=== PATIENT | female | born 1965 | race Hispanic/Latino ===

== ENCOUNTER 2017-09-15 21:00 | Emergency (ER) | payer OTHER ==
[2017-09-15] MEDS ORDERED: Sodium Chloride 0.9% 1,000 ML IV STA (21:31)
--- NOTE | 2017-09-15 21:33 | ED PDOC ---
HPI:Nausea, Vomiting, Diarrhea Time Seen by Provider: 09/15/17 21:11 Chief Complaint (Nursing): GI Problem Chief Complaint (Provider): vomiting, diarrhea History Per: Patient History/Exam Limitations: no limitations Onset/Duration Of Symptoms: Days (2) Current Symptoms Are (Timing): Still Present Quality Of Discomfort: Cramping Additional Complaint(s): 52 y/o female presents for evaluation of nonbloody diarrhea x 2 days, and vomiting x 6 hours. Associated lower abdominal cramping. Denies fever, cough, congestion, chest pain, shortness of breath, palpitations, urinary symptoms, vaginal bleeding/discharge, recent travel. Patient states her has had diarrhea x 2 days. Past Medical History Reviewed: Historical Data, Nursing Documentation, Vital Signs Vital Signs: Last Vital Signs Temp 99.2 F 09/15/17 21:03 Pulse 90 09/15/17 21:03 Resp 16 09/15/17 21:03 BP 118/71 09/15/17 21:03 Pulse Ox 95 09/15/17 21:03 - Medical History PMH: No Chronic Diseases - Surgical History Other surgeries: breast augmentation - Family History Family History: States: No Known Family Hx - Home Medications Home Medications: Ambulatory Orders Medication Instructions Recorded Dicyclomine [Bentyl] 20 mg PO TID PRN #15 tab 09/16/17 Ondansetron ODT [Zofran ODT] 4 mg PO Q8 PRN #10 odt 09/16/17 - Allergies Allergies/Adverse Reactions: Allergies Allergy/AdvReac Type Severity Reaction Status Date / Time No Known Allergies Allergy Verified 09/15/17 21:02 Review of Systems ROS Statement: Except As Marked, All Systems Reviewed And Found Negative Gastrointestinal: Positive for: Nausea, Vomiting, Abdominal Pain, Diarrhea Physical Exam - Reviewed Nursing Documentation Reviewed: Yes Vital Signs Reviewed: Yes - Physical Exam Appears: Positive for: Well, Non-toxic, No Acute Distress Head Exam: Positive for: ATRAUMATIC, NORMAL INSPECTION, NORMOCEPHALIC Skin: Positive for: Normal Color Eye Exam: Positive for: Normal appearance ENT: Positive for: Normal ENT Inspection Cardiovascular/Chest: Positive for: Regular Rate, Rhythm Respiratory: Positive for: Normal Breath Sounds Gastrointestinal/Abdominal: Positive for: Normal Exam Back: Positive for: Normal Inspection Extremity: Positive for: Normal ROM Neurologic/Psych: Positive for: Alert, Oriented - Laboratory Results Result Diagrams: 09/15/17 22:03 09/15/17 22:03 - ECG O2 Sat by Pulse Oximetry: 95 - Progress ED Course And Treament: labs, urine, IV fluids, ODT zofran, PO bentyl On re-eval, patient states nausea improved but still present; IV reglan ordered 00:30 Patient tolerating PO, states she is feeling better and would like to go home. Rx zofran, bentyl provided Advised fluids, bland diet Follow uP PMD 2-3 days. Return precautions given Disposition - Clinical Impression Clinical Impression: Gastroenteritis - Patient ED Disposition Is Patient to be Admitted: No Counseled Patient/Family Regarding: Studies Performed, Diagnosis, Need For Followup, Rx Given - Disposition Disposition: Routine/Home Disposition Time: 00:38 Condition: IMPROVED Prescriptions: Dicyclomine [Bentyl] 20 mg PO TID PRN #15 tab PRN Reason: Pain, Mild (1-3) Ondansetron ODT [Zofran ODT] 4 mg PO Q8 PRN #10 odt PRN Reason: Nausea/Vomiting Instructions: Viral Gastroenteritis Forms: [facility] ([place])
[2017-09-15 22:07] LABS: BASO # 0.1 K/uL (0.0-0.2); BASO % 0.4 % (0.0-2.0); EOS # 0.1 K/uL (0.0-0.7); EOS % 0.7 % (0.0-4.0); LYMPH # 0.3 K/uL (1.0-4.3); LYMPH % 2.5 % (20.0-40.0); MEAN CELL VOLUME 90.8 fl (81.0-99.0); MEAN CORPUSCULAR HEMOGLOBIN 30.6 pg (27.0-31.0); MEAN CORPUSCULAR HGB CONC 33.7 g/dL (33.0-37.0); MONO # 0.4 K/uL (0.0-0.8); MONO % 3.1 % (0.0-10.0); NEUT # 11.4 K/uL (1.8-7.0); NEUT % 93.3 % (50.0-75.0); PLATELET COUNT 249 K/uL (130-400); RBC 4.59 Mil/uL (3.80-5.20); RED CELL DISTRIBUTION WIDTH 12.9 % (11.5-14.5); WHITE BLOOD COUNT 12.2 K/uL (4.8-10.8)
[2017-09-15 22:19] LABS: ALB/GLOB RATIO 1.5 (1.0-2.1); ALBUMIN 4.4 g/dL (3.5-5.0); ALT/SGPT 35 U/L (9-52); AST/SGOT 22 U/L (14-36); BLOOD UREA NITROGEN 17 mg/dl (7-17); CALCIUM 9.2 mg/dL (8.4-10.2); GFR AFRICAN-AMERICAN > 60; GFR NON-AFRICAN AMERICAN > 60; LIPASE 27 U/L (23-300); SQUAMOUS EPITHIAL < 1 /hpf (0-5); URINE BILIRUBIN NEGATIVE (NEGATIVE); URINE BLOOD NEGATIVE (NEGATIVE); URINE CLARITY SLIGHTY-CLOUDY (Clear); URINE COLOR YELLOW (YELLOW); URINE GLUCOSE (UA) NEG (Normal); URINE LEUKOCYTE ESTERASE NEG Leu/uL (Negative); URINE PROTEIN NEGATIVE (NEGATIVE); URINE UROBILINOGEN 0.2-1.0 mg/dL (0.2-1.0)
[2017-09-15 23:01] LABS: BANDS 1 % (0-2); LYMPHOCYTE 3 % (20-50); MONOCYTE 1 % (0-10); NEUTROPHIL 95 % (42-75); TOTAL CELLS COUNTED 100
[2017-09-15 23:02] LABS: PLATELET ESTIMATE NORMAL (NORMAL)
[2017-09-16 00:43] VITALS: BP 110/70; PULSE 88; RESP 18; TEMP 98.8; O2SAT 96
== END 2017-09-16 00:43 | disposition home or self-care (01) ==
LOC: H.ER 21:00
DX: K52.9 Noninfective gastroenteritis and colitis, unspecified (principal)
CPT/HCPCS: 80053; 81003; 81025; 83690; 85025; 96374; 99284; J2765; J7040